=== PATIENT | female | born 1975 | race African-American/Black ===

== ENCOUNTER → 2016-06-17 | Outpatient (CLI) | payer BC ==
[2016-06-17 12:28] LABS: BASOPHILS % 0.5 % (0.0-2.0); EOSINOPHILS % 2.1 % (0.0-5.0); HEMATOCRIT. 32.1 % (36.0-48.0); HEMOGLOBIN. 10.5 g/dL (12.0-16.0); LYMPHOCYTES % 40.7 % (20.0-50.0); MEAN CORPUSCULAR HEMOGLOBIN 29.4 pg (28.0-32.0); MEAN CORPUSCULAR HGB CONC 32.7 g/dL (31.0-37.0); MEAN CORPUSCULAR VOLUME 89.9 fL (81.0-99.0); MEAN PLATELET VOLUME 7.2 fl (7.4-10.4); MONOCYTES % 10.8 % (2.0-8.0); NEUTROPHILS % 45.9 % (40.0-76.0); PLATELET 310 x1000/uL (130-400); RED BLOOD CELL COUNT 3.57 mill/uL (4.2-5.4); RED CELL DISTRIBUTION WIDTH 14.5 % (11.6-14.6); WHITE BLOOD COUNT 7.2 x1000/uL (4.5-11.0)
[2016-06-18 13:29] LABS: CANCER ANTIGEN 125 27.1 U/mL (0.0-38.1)
== END | disposition home or self-care (01) ==
LOC: LAB 11:51
PROVIDERS: ATTEND Internal Medicine Geriatric Medicine
DX: N83.209 Unspecified ovarian cyst, unspecified side (principal); R10.9 Unspecified abdominal pain
CPT/HCPCS: 36415; 84702; 85025; 86304; 86305

== ENCOUNTER → 2016-07-13 | Day surgery (SDC) | payer BC ==
[~2016-07-13] VITALS: Ht 162.6 cm; Wt 91.6 kg
[~2016-07-13] MED LIST: CEFAZOLIN SODIUM 1000MG/VIAL ONE; DEXAMETHASONE 4MG/ML 1ML VIAL ONE; FENTANYL CITRATE/PF 50MCG/ML 2ML VIAL ONE; HYDROMORPHONE HCL/PF 2MG/ML (OR) ONE; LACTATED RINGERS 1,000 ML IV SCH; METHYLENE BLUE 1% VIAL 1ML ONE; MIDAZOLAM HCL 2 MG/2 ML VIAL ONE; ONDANSETRON HCL 4MG/2ML VIAL IV PRN; ONDANSETRON HCL 4MG/2ML VIAL ONE; PHENYLEPHRINE HCL 10 MG/ML 1ML (IV VIAL) IV ONE; PROPOFOL 200MG/20ML VIAL IV ONE; ROCURONIUM BROMIDE 10MG/ML VIAL 5ML IV ONE; SKIN ADHESIVE 0.7 GM EA TOP ONE; [UNRECOGNIZED DRUG - CODE] PO
[2016-07-13 07:21] LABS: BASOPHILS % 0.6 % (0.0-2.0); HEMATOCRIT. 24.8 % (36.0-48.0); HEMOGLOBIN. 7.9 g/dL (12.0-16.0); LYMPHOCYTES % 39.2 % (20.0-50.0); MEAN CORPUSCULAR HEMOGLOBIN 27.5 pg (28.0-32.0); MEAN CORPUSCULAR HGB CONC 31.8 g/dL (31.0-37.0); MEAN CORPUSCULAR VOLUME 86.3 fL (81.0-99.0); MEAN PLATELET VOLUME 7.7 fl (7.4-10.4); MONOCYTES % 8.8 % (2.0-8.0); NEUTROPHILS % 48.4 % (40.0-76.0); PLATELET 386 x1000/uL (130-400); RED BLOOD CELL COUNT 2.88 mill/uL (4.2-5.4); RED CELL DISTRIBUTION WIDTH 15.6 % (11.6-14.6); WHITE BLOOD COUNT 8.4 x1000/uL (4.5-11.0)
[2016-07-13 07:27] LABS: PARTIAL THROMBOPLASTIN TIME 24.4 sec (24.0-34.0); PROTHROMBIN TIME 10.6 sec
[2016-07-13 08:14] LABS: CLARITY URINE CLEAR (CLEAR); COLOR URINE YELLOW (YELLOW); GLUCOSE URINE NEGATIVE (NEGATIVE); KETONES URINE TRACE (NEGATIVE); LEUKOCYTE ESTERASE URINE NEGATIVE (NEGATIVE); NITRITE URINE NEGATIVE (NEGATIVE); OCCULT BLOOD URINE 2+ (NEGATIVE); PH URINE 5.5 (4.5-8.0); PROTEIN URINE NEGATIVE (NEGATIVE); SPECIFIC GRAVITY URINE 1.022 (1.005-1.030); UROBILINOGEN URINE 0.2 E.U./dL (0.2-1.0)
[2016-07-13 09:02] LABS: WBC URINE 0-2 /hpf (0-2)
[2016-07-13 09:03] LABS: BACTERIA URINE 1+; SQUAMOUS EPITHELIAL CELL URINE FEW /lpf (RARE/1+)
[2016-07-13 09:17] LABS: UCG SCREEN NEGATIVE
[2016-07-13] MEDS: HYDROMORPHONE HCL/PF 2MG/ML CPJ IV PRN ×4 (12:26→12:51)
[2016-07-13] MEDS: FENTANYL CITRATE/PF 50MCG/ML 2ML VIAL IV PRN ×4 (12:28→12:52)
[2016-07-13 12:52] VITALS: BP 119/65
== END | disposition home or self-care (01) ==
LOC: OR 06:28
PROVIDERS: ATTEND Obstetrics & Gynecology Obstetrics
DX: N92.1 Excessive and frequent menstruation with irregular cycle (principal); N83.202 Unspecified ovarian cyst, left side; N84.0 Polyp of corpus uteri; Z86.73 Personal history of transient ischemic attack (TIA), and cerebral infarction without residual deficits
CPT/HCPCS: 36415; 58558; 58662; 81001; 81025; 85025; 85610; 85730; 86850; 86900; 86901; 88304; 88305; G0168; J0690; J1100; J1170; J2250; J2370; J2405; J3010; J3490; J7120; Q9968; J2704

== ENCOUNTER 2016-12-14 05:29 | Inpatient (IN) | payer BC ==
[~2016-12-14] VITALS: Ht 160 cm; Wt 94.3 kg
[~2016-12-14 05:29] MED LIST changes: +ASCO-316 PO; -CEFAZOLIN SODIUM 1000MG/VIAL ONE; -DEXAMETHASONE 4MG/ML 1ML VIAL ONE; -FENTANYL CITRATE/PF 50MCG/ML 2ML VIAL ONE; -HYDROMORPHONE HCL/PF 2MG/ML (OR) ONE; -LACTATED RINGERS 1,000 ML IV SCH; -METHYLENE BLUE 1% VIAL 1ML ONE; -MIDAZOLAM HCL 2 MG/2 ML VIAL ONE; -ONDANSETRON HCL 4MG/2ML VIAL IV PRN; -ONDANSETRON HCL 4MG/2ML VIAL ONE; -PHENYLEPHRINE HCL 10 MG/ML 1ML (IV VIAL) IV ONE; -PROPOFOL 200MG/20ML VIAL IV ONE; -ROCURONIUM BROMIDE 10MG/ML VIAL 5ML IV ONE; -SKIN ADHESIVE 0.7 GM EA TOP ONE; -[UNRECOGNIZED DRUG - CODE] PO
[2016-12-14 06:26] LABS: CLARITY URINE CLEAR (CLEAR); COLOR URINE YELLOW (YELLOW); GLUCOSE URINE NEGATIVE (NEGATIVE); KETONES URINE NEGATIVE (NEGATIVE); LEUKOCYTE ESTERASE URINE NEGATIVE (NEGATIVE); NITRITE URINE NEGATIVE (NEGATIVE); OCCULT BLOOD URINE NEGATIVE (NEGATIVE); PROTEIN URINE NEGATIVE (NEGATIVE); SPECIFIC GRAVITY URINE 1.015 (1.005-1.030); UROBILINOGEN URINE 0.2 E.U./dL (0.2-1.0)
[2016-12-14 06:32] LABS: BASOPHILS % 0.9 % (0.0-2.0); EOSINOPHILS % 5.1 % (0.0-5.0); HEMATOCRIT. 23.1 % (36.0-48.0); HEMOGLOBIN. 7.2 g/dL (12.0-16.0); LYMPHOCYTES % 39.3 % (20.0-50.0); MEAN CORPUSCULAR HEMOGLOBIN 22.3 pg (28.0-32.0); MEAN CORPUSCULAR VOLUME 71.7 fL (81.0-99.0); MEAN PLATELET VOLUME 7.2 fl (7.4-10.4); MONOCYTES % 9.7 % (2.0-8.0); PLATELET 383 x1000/uL (130-400); RED BLOOD CELL COUNT 3.22 mill/uL (4.2-5.4); RED CELL DISTRIBUTION WIDTH 18.4 % (11.6-14.6)
[2016-12-14 06:33] LABS: PARTIAL THROMBOPLASTIN TIME 24.5 sec (23.4-31.0); PROTHROMBIN TIME 10.7 sec (9.4-11.6)
[2016-12-14 06:37] LABS: UCG SCREEN NEGATIVE
[2016-12-14] MEDS ORDERED: SODIUM CHLORIDE 0.9% 1,000 ML IV SCH (06:40)
[2016-12-14] MEDS ORDERED: VASOPRESSIN 20 UNIT/ML 1ML ONE (07:15)
[2016-12-14] MEDS ORDERED: SODIUM CHLORIDE 0.9% 100 ML ONE (07:15)
[2016-12-14] MEDS ORDERED: CEFAZOLIN SODIUM 1000MG/VIAL ONE (07:26)
[2016-12-14] MEDS ORDERED: LIDOCAINE HCL 1% 20ML VIAL (Pyxis) INJ ONE (07:26)
[2016-12-14] MEDS ORDERED: MIDAZOLAM HCL 2 MG/2 ML VIAL ONE (07:27)
[2016-12-14] MEDS ORDERED: FENTANYL CITRATE/PF 50MCG/ML 5ML VIAL ONE (07:28)
[2016-12-14] MEDS ORDERED: SUCCINYLCHOLINE CHLORIDE 200MG/10ML VIAL IV ONE (07:33)
[2016-12-14] MEDS ORDERED: EPHEDRINE SULFATE 50MG/ML VIAL ONE (07:57)
[2016-12-14] MEDS ORDERED: HYDROMORPHONE HCL/PF 2MG/ML (OR) ONE ×2 (08:07→11:05)
[2016-12-14] MEDS ORDERED: ONDANSETRON HCL 4MG/2ML VIAL IV PRN ×2 (08:30→12:30)
[2016-12-14] MEDS ORDERED: HYDROMORPHONE HCL/PF 2MG/ML CPJ IV PRN (08:30)
[2016-12-14] MEDS ORDERED: MEPERIDINE HCL/PF 25MG/ML CPJ IV PRN ×2 (08:30→12:30)
[2016-12-14] MEDS ORDERED: LABETALOL HCL 20MG/4ML CARPUJECT IV PRN ×2 (08:30→12:30)
[2016-12-14] MEDS ORDERED: PROPOFOL 200MG/20ML VIAL IV ONE (08:52)
[2016-12-14] MEDS ORDERED: ACET-2178 PO (08:54)
[2016-12-14] MEDS ORDERED: ONDANSETRON HCL 4MG/2ML VIAL ONE (10:57)
[2016-12-14] MEDS ORDERED: METOCLOPRAMIDE HCL 10MG/2ML VIAL ONE (10:58)
[2016-12-14] MEDS ORDERED: SKIN ADHESIVE 0.7 GM EA TOP ONE (11:02)
[2016-12-14] MEDS ORDERED: NALOXONE HCL 0.4 MG/ML 1ML VIAL ONE (11:28)
[2016-12-14] MEDS ORDERED: LACTATED RINGERS 1,000 ML IV SCH (11:52)
[2016-12-14] MEDS ORDERED: SIMETHICONE 80MG TABLET CHEW PO PRN (12:00)
[2016-12-14] MEDS: HYDROMORPHONE HCL/PF 2MG/ML CPJ IV PRN ×5 (12:36→23:56)
[2016-12-14 14:35] LABS: HEMATOCRIT 32.4 % (36.0-48.0)
[2016-12-14] MEDS: HYDROCODONE/ACETAMINOPHEN 5/325MG TABLET PO PRN (18:00)
[2016-12-14 18:06] VITALS: BP 110/63
[2016-12-14 20:00] VITALS: BP 114/69
[2016-12-15] VITALS (7 sets, daily range): BP systolic 91–130; BP diastolic 48–65
[2016-12-15] MEDS: HYDROMORPHONE HCL/PF 2MG/ML CPJ IV PRN ×2 (05:09→11:01)
[2016-12-15 06:34] LABS: BASOPHILS % 0.2 % (0.0-2.0); EOSINOPHILS % 2.3 % (0.0-5.0); HEMATOCRIT. 27.2 % (36.0-48.0); HEMOGLOBIN. 8.8 g/dL (12.0-16.0); MEAN CORPUSCULAR HEMOGLOBIN 24.8 pg (28.0-32.0); MEAN CORPUSCULAR VOLUME 76.9 fL (81.0-99.0); MEAN PLATELET VOLUME 7.6 fl (7.4-10.4); MONOCYTES % 7.6 % (2.0-8.0); NEUTROPHILS % 81.9 % (40.0-76.0); PLATELET 318 x1000/uL (130-400); RED BLOOD CELL COUNT 3.54 mill/uL (4.2-5.4)
[2016-12-15] MEDS: BETHANECHOL CHLORIDE 25 MG TABLET PO SCH ×2 (14:30→18:58)
[2016-12-15] MEDS: HYDROCODONE/ACETAMINOPHEN 5/325MG TABLET PO PRN ×2 (14:59→20:42)
[2016-12-16] VITALS: BP 105/55
[2016-12-16] MEDS: BETHANECHOL CHLORIDE 25 MG TABLET PO SCH ×3 (00:50→12:00)
[2016-12-16] MEDS: HYDROCODONE/ACETAMINOPHEN 5/325MG TABLET PO PRN ×2 (03:23→09:20)
[2016-12-16 04:00] VITALS: BP 98/52
[2016-12-16 08:00] VITALS: BP 122/66
[2016-12-16 10:00] LABS: HEMATOCRIT 27.1 % (36.0-48.0); HEMOGLOBIN 8.8 g/dL (12.0-16.0)
[2016-12-16 12:00] VITALS: BP 129/71
[2016-12-16 13:44] VITALS: BP 121/66
== END 2016-12-16 15:00 | disposition home or self-care (01) | DRG 743 ==
LOC: OR 05:29 → 6WST 05:30
PROVIDERS: ADMIT Obstetrics & Gynecology Obstetrics; ATTEND Obstetrics & Gynecology Obstetrics
PROC: 0UT7FZZ Resection of Bilateral Fallopian Tubes, Via Natural or Artificial Opening With Percutaneous Endoscopic Assistance (ICD-10-PCS; 2016-12-14)
PROC: 30233N1 Transfusion of Nonautologous Red Blood Cells into Peripheral Vein, Percutaneous Approach (ICD-10-PCS; 2016-12-14)
PROC: 0UT9FZZ Resection of Uterus, Via Natural or Artificial Opening With Percutaneous Endoscopic Assistance (ICD-10-PCS; principal; 2016-12-14 07:30)
DX: N92.0 Excessive and frequent menstruation with regular cycle (principal); K66.8 Other specified disorders of peritoneum; R10.2 Pelvic and perineal pain; D64.9 Anemia, unspecified; G89.29 Other chronic pain; Z86.73 Personal history of transient ischemic attack (TIA), and cerebral infarction without residual deficits
CPT/HCPCS: 36415; 81003; 81025; 85014; 85018; 85025; 85610; 85730; 86850; 86900; 86920; 88302; C1725; J0171; J0330; J0690; J1170; J2175; J2250; J2310; J2405; J2704; J2765; J3010; J3490; J7030; J7050; P9016

== ENCOUNTER → 2017-06-08 | Outpatient (CLI) | payer BC ==
[~2017-06-08] MED LIST changes: +ACET-2178 PO
== END | disposition home or self-care (01) ==
LOC: MAMMO 10:23
PROVIDERS: ATTEND Obstetrics & Gynecology Obstetrics
DX: Z12.31 Encounter for screening mammogram for malignant neoplasm of breast (principal)
CPT/HCPCS: 77067

== ENCOUNTER 2018-03-04 02:03 | Emergency (ER) | payer BC ==
[~2018-03-04] VITALS: Ht 157.5 cm; Wt 50.0 kg
[2018-03-04] MEDS ORDERED: TUBERCULIN,PURIF.PROT.DERIV. 5 TU/0.1 ML SYR ID ONE (05:00)
[2018-03-04 05:30] VITALS: BP 130/72
== END 2018-03-04 15:51 | disposition home or self-care (01) ==
LOC: ER 13:30
DX: Z11.1 Encounter for screening for respiratory tuberculosis (principal); Z90.710 Acquired absence of both cervix and uterus
CPT/HCPCS: 90585; 99282; 99283

== ENCOUNTER 2019-03-19 03:50 | Emergency (ER) | payer OTHER, BC ==
[~2019-03-19] VITALS: Ht 160 cm; Wt 91.0 kg
[~2019-03-19 03:50] MED LIST changes: -ACET-2178 PO; +TOPUD PO
[2019-03-19 04:14] VITALS: BP 158/96
== END 2019-03-19 04:47 | disposition home or self-care (01) ==
LOC: ER 03:50
DX: T24.501A Corrosion of first degree of unspecified site of right lower limb, except ankle and foot, initial encounter (principal); Z90.710 Acquired absence of both cervix and uterus; V49.88XA Car occupant (driver) (passenger) injured in other specified transport accidents, initial encounter; Y93.89 Activity, other specified; Y92.89 Other specified places as the place of occurrence of the external cause; Y99.8 Other external cause status
CPT/HCPCS: 99282

== ENCOUNTER → 2020-10-01 | Outpatient (CLI) | payer BC ==
[2020-10-01 11:07] LABS: CLARITY URINE CLOUDY (CLEAR); COLOR URINE YELLOW (YELLOW); KETONES URINE TRACE (NEGATIVE); LEUKOCYTE ESTERASE URINE NEGATIVE (NEGATIVE); NITRITE URINE NEGATIVE (NEGATIVE); OCCULT BLOOD URINE NEGATIVE (NEGATIVE); PH URINE 5.5 (4.5-8.0); PROTEIN URINE NEGATIVE (NEGATIVE); SPECIFIC GRAVITY URINE 1.028 (1.005-1.030); UROBILINOGEN URINE 0.2 E.U./dL (0.2-1.0)
[2020-10-01 11:10] LABS: BASOPHILS % 0.5 % (0.0-2.0); EOSINOPHILS % 1.9 % (0.0-5.0); HEMATOCRIT. 39.8 % (36.0-48.0); HEMOGLOBIN. 13.6 g/dL (12.0-16.0); MEAN CORPUSCULAR HEMOGLOBIN 31.5 pg (28.0-32.0); MEAN CORPUSCULAR VOLUME 92.4 fL (81.0-99.0); MEAN PLATELET VOLUME 8.1 fl (7.4-10.4); MONOCYTES % 10.1 % (2.0-8.0); NEUTROPHILS % 44.5 % (40.0-76.0); PLATELET 235 x1000/uL (130-400); RED BLOOD CELL COUNT 4.31 mill/uL (4.2-5.4); RED CELL DISTRIBUTION WIDTH 13.4 % (11.6-14.6)
[2020-10-01 11:46] LABS: FERRITIN 56 ng/mL (10-291)
[2020-10-01 12:12] LABS: CHLORIDE 105 mEq/L (98-107)
[2020-10-01 12:22] LABS: TOTAL IRON BINDING CAPACITY 384 ug/dL (250-450)
[2020-10-01 12:23] LABS: LDL CHOLESTEROL 90 mg/dL (5-100)
[2020-10-01 12:25] LABS: HDL CHOLESTEROL 77 mg/dL (40-59)
[2020-10-01 13:01] LABS: FOLIC ACID (FOLATE) SERUM >20 ng/mL ng/mL (>5.38)
[2020-10-01 13:13] LABS: VITAMIN B12 SERUM 877 pg/mL (211-911)
== END | disposition home or self-care (01) ==
LOC: LAB 10:04
PROVIDERS: ATTEND Internal Medicine Geriatric Medicine
DX: Z00.01 Encounter for general adult medical examination with abnormal findings (principal); Z03.818 Encounter for observation for suspected exposure to other biological agents ruled out; N39.0 Urinary tract infection, site not specified; D50.9 Iron deficiency anemia, unspecified
CPT/HCPCS: 36415; 80053; 80061; 81003; 82306; 82607; 82728; 82746; 83036; 83540; 83550; 84443; 85025; 86592

== ENCOUNTER → 2021-01-14 | Outpatient (CLI) | payer BC | END | disposition home or self-care (01) | LOC: MAMMO 10:23 | PROVIDERS: ATTEND Internal Medicine Geriatric Medicine | DX: Z12.31 Encounter for screening mammogram for malignant neoplasm of breast (principal) | CPT/HCPCS: 77067 ==

== ENCOUNTER → 2021-11-03 | Outpatient (CLI) | payer BC ==
[~2021-11-03] MED LIST changes: +NITR-87 MT; +PHEN-815 MT
[2021-11-03 12:18] LABS: BASOPHILS % 0.7 % (0.0-2.0); EOSINOPHILS % 2.6 % (0.0-5.0); HEMATOCRIT. 39.9 % (36.0-48.0); HEMOGLOBIN. 13.2 g/dL (12.0-16.0); LYMPHOCYTES % 43.2 % (20.0-50.0); MEAN CORPUSCULAR HEMOGLOBIN 31.3 pg (28.0-32.0); MEAN CORPUSCULAR VOLUME 94.2 fL (81.0-99.0); MEAN PLATELET VOLUME 8.1 fl (7.4-10.4); MONOCYTES % 9.2 % (2.0-8.0); NEUTROPHILS % 44.3 % (40.0-76.0); PLATELET 230 x1000/uL (130-400); RED BLOOD CELL COUNT 4.23 mill/uL (4.2-5.4); RED CELL DISTRIBUTION WIDTH 13.7 % (11.6-14.6)
[2021-11-03 12:21] LABS: CLARITY URINE CLEAR (CLEAR); COLOR URINE YELLOW (YELLOW); KETONES URINE TRACE (NEGATIVE); LEUKOCYTE ESTERASE URINE NEGATIVE (NEGATIVE); NITRITE URINE NEGATIVE (NEGATIVE); OCCULT BLOOD URINE NEGATIVE (NEGATIVE); PROTEIN URINE NEGATIVE (NEGATIVE); SPECIFIC GRAVITY URINE 1.026 (1.005-1.030)
[2021-11-03 12:27] LABS: CHLORIDE 107 mEq/L (98-107)
[2021-11-03 12:41] LABS: HDL CHOLESTEROL 65 mg/dL (40-59); LDL CHOLESTEROL 79 mg/dL (5-100); TOTAL IRON BINDING CAPACITY 351 ug/dL (250-450)
[2021-11-03 12:54] LABS: FERRITIN 65 ng/mL (10-291)
[2021-11-03 13:06] LABS: HEPATITIS B SURFACE ANTIGEN NEGATIVE
[2021-11-03 13:11] LABS: VITAMIN B12 SERUM 783 pg/mL (211-911)
== END | disposition home or self-care (01) ==
LOC: CARD 10:46
PROVIDERS: ATTEND Internal Medicine Geriatric Medicine
DX: Z00.01 Encounter for general adult medical examination with abnormal findings (principal); Z11.59 Encounter for screening for other viral diseases; I08.0 Rheumatic disorders of both mitral and aortic valves; I10 Essential (primary) hypertension; E55.9 Vitamin D deficiency, unspecified; E56.9 Vitamin deficiency, unspecified; N39.0 Urinary tract infection, site not specified; E78.5 Hyperlipidemia, unspecified; R60.9 Edema, unspecified; R73.09 Other abnormal glucose
CPT/HCPCS: 36415; 80053; 80061; 81003; 82306; 82607; 82728; 83036; 83540; 83550; 84443; 85025; 86592; 86705; 86709; 86803; 87340; 93306

== ENCOUNTER → 2021-12-31 | Outpatient (CLI) | payer BC | END | disposition home or self-care (01) | LOC: RAD 11:04 | PROVIDERS: ATTEND Internal Medicine Geriatric Medicine | DX: M25.461 Effusion, right knee (principal); M25.561 Pain in right knee | CPT/HCPCS: 73562 ==

== ENCOUNTER 2023-03-09 00:41 | Emergency (ER) | payer BC, OTHER ==
[2023-03-09 00:51] VITALS: BP 142/87; PULSE 81; RESP 16; TEMP 98.5
[2023-03-09] MEDS ORDERED: ATEN-42 MT (00:55)
== END 2023-03-09 01:07 | disposition home or self-care (01) ==
LOC: ER 00:45
DX: Z76.0 Encounter for issue of repeat prescription (principal); I10 Essential (primary) hypertension; Z79.899 Other long term (current) drug therapy
CPT/HCPCS: 99283